=== PATIENT | female | born 1935 | race Two or more races ===

== ENCOUNTER 2020-01-16 05:31 | Inpatient (IN) | payer MEDICAID, MEDICARE ==
[~2020-01-16] VITALS: Ht 157.5 cm; Wt 69.1 kg
[2020-01-16] MEDS ORDERED: METO-558 PO (06:03)
[2020-01-16] MEDS ORDERED: METF-960 PO (06:03)
[2020-01-16] MEDS ORDERED: SITA100 PO (06:03)
[2020-01-16] MEDS ORDERED: AMIT75 PO (06:03)
[2020-01-16] MEDS ORDERED: LISI-662 PO (06:03)
[2020-01-16] MEDS ORDERED: MELA5TAB3 PO (06:03)
[2020-01-16 06:34] LABS: GLUCOSE,POINT OF CARE 226 MG/DL (70-110)
[2020-01-16 07:00] LABS: BASOPHILS % (AUTO) 0.5 % (0.0-2.0); EOSINOPHILS % (AUTO) 0.1 % (1.0-6.0); HEMATOCRIT 41.4 % (36-46); HEMOGLOBIN 13.3 g/dL (12.0-16.0); LYMPHOCYTES # (AUTO) 1.2 K/uL (1.0-4.8); LYMPHOCYTES % (AUTO) 9.2 % (22.0-44.0); MEAN CORPUSCULAR HEMOGLOBIN 28.6 pg (26.0-34.0); MEAN CORPUSCULAR HGB CONC 32.1 G/dL (31.0-37.0); MEAN CORPUSCULAR VOLUME 89 fL (80-100); MONOCYTES % (AUTO) 7.1 % (2.0-9.0); NEUTROPHILS # (AUTO) 11.2 K/uL (1.8-7.7); NEUTROPHILS % (AUTO) 83.1 % (40.0-70.0); PLATELET COUNT (AUTO) 309 K/uL (150-450); RED BLOOD CELL COUNT(AUTO) 4.64 MIL/uL (4.00-5.20); RED CELL DISTRIBUTION WIDTH 13.7 % (11.5-14.5)
[2020-01-16 07:16] LABS: AMPHET/METH SCREEN,URINE NEGATIVE (NEGATIVE); BARBITURATE SCREEN, URINE NEGATIVE (NEGATIVE); BENZODIAZEPINES SCREEN,URINE NEGATIVE (NEGATIVE); CANNABINOID SCREEN,URINE NEGATIVE (NEGATIVE); COCAINE SCREEN,URINE NEGATIVE (NEGATIVE); METHADONE SCREEN, URINE NEGATIVE (NEGATIVE); OPIATE SCREEN,URINE NEGATIVE (NEGATIVE)
[2020-01-16 07:24] LABS: ALANINE AMINOTRANSFERASE 16 U/L (12-78); ALBUMIN 4.5 g/dL (3.4-5.0); ALKALINE PHOSPHATASE 72 U/L (46-116); ANION GAP 10 mmol/L (8-16); ASPARTATE AMINOTRANSFERASE 14 U/L (15-37); BILIRUBIN,TOTAL 0.4 mg/dL (0.1-1.0); CALCIUM, TOTAL 9.5 mg/dL (8.8-10.5); CARBON DIOXIDE 32 mmol/L (22-29); CHLORIDE 92 mmol/L (98-107); CREATININE 0.72 mg/dL (0.60-1.30); FREE T4 (FREE THYROXINE) 0.97 ng/dL (0.76-1.46); GLUCOSE,RANDOM 218 mg/dL (70-110); SODIUM SERUM 134 mmol/L (136-145); THYROID STIMULATING HORMONE 4.83 uIU/mL (0.36-3.74); TOTAL PROTEIN, SERUM 8.3 g/dL (6.4-8.2); UREA NITROGEN, BLOOD 20 mg/dL (7-18)
[2020-01-16 07:25] LABS: PHENCYCLIDINE SCREEN,URINE NEGATIVE (NEGATIVE)
[2020-01-16 07:27] LABS: GLOMERULAR FILTR. RATE CALC > 60 mL/min (>60)
[2020-01-16 07:38] LABS: APPEARANCE,URINE CLEAR (CLEAR); BILIRUBIN,URINE NEGATIVE (NEGATIVE); GLUCOSE, URINE (UA) 250 mg/dL (NEGATIVE); KETONES,URINE TRACE mg/dL (NEGATIVE); LEUKOCYTE ESTERASE ,URINE MODERATE (NEGATIVE); NITRATE,URINE NEGATIVE (NEGATIVE); OCCULT BLOOD,URINE NEGATIVE (NEGATIVE); PROTEIN,URINE POS 1+ (NEGATIVE); UROBILINOGEN,URINE 0.2 mg/dL (<=1.0)
[2020-01-16] MEDS ORDERED: POTASSIUM CHLORIDE 20 MEQ ER TABLET PO ONE (07:45)
[2020-01-16] MEDS ORDERED: PROMETHAZINE HCL 25 MG TABLET PO ONE (07:45)
[2020-01-16] MEDS ORDERED: ONDANSETRON HCL 4 MG/2 ML VIAL IM ONE (08:30)
[2020-01-16 08:54] LABS: BACTERIA,URINE Few /HPF (None Seen); RBC,URINE 0-2 /HPF (0-2)
[2020-01-16 08:55] LABS: SQUAMOUS EPITHELIAL CELL,UR Few /LPF (None Seen); YEAST,URINE None Seen /HPF (None Seen)
[2020-01-16] MEDS ORDERED: CefTRIAXone 1 GM/DEXTROSE 50 ML IV ONE (09:30)
[2020-01-16] MEDS ORDERED: ONDANSETRON HCL 4 MG/2 ML VIAL IVP ONE (09:30)
[2020-01-16] MEDS ORDERED: SODIUM CHLORIDE 0.9% 1,000 ML IV ONE (09:30)
[2020-01-16] MEDS ORDERED: HydrALAZINE HCL 20 MG/ML VIAL IVP ONE (09:30)
[2020-01-16 09:40] LABS: LIPASE 173 U/L (73-393)
[2020-01-16] MEDS ORDERED: ACETAMINOPHEN 325 MG TABLET PO PRN (10:30)
[2020-01-16] MEDS ORDERED: 0.9% SODIUM CHLORIDE 10 ML SYRINGE IVP PRN (10:30)
[2020-01-16 12:35] VITALS: BP 151/112
[2020-01-16 16:15] VITALS: BP 160/77
[2020-01-16] MEDS ORDERED: ONDANSETRON HCL 4 MG/2 ML VIAL IVP PRN (16:30)
[2020-01-16] MEDS ORDERED: MORPHINE SULFATE 2 MG/ML SYRINGE IVP PRN (16:30)
[2020-01-16] MEDS ORDERED: ZOLPIDEM TARTRATE 5 MG TABLET PO PRN (16:30)
[2020-01-16] MEDS ORDERED: BISACODYL 10 MG RECTAL RECTAL SUPPOSITORY PR PRN (16:30)
[2020-01-16] MEDS ORDERED: HYDROCODONE/ACETAMINOPHEN 5-325 MG TABLET PO PRN (16:30)
[2020-01-16] MEDS ORDERED: MAGNESIUM HYDROXIDE SUSPENSION 30 ML UDCUP PO PRN (16:30)
[2020-01-16] MEDS: MetFORMIN HCL 500 MG TABLET PO SCH (18:00)
[2020-01-16 18:32] LABS: GLUCOMETER DEV NAME(LOC) 5S.2A; GLUCOSE,POINT OF CARE 151 MG/DL (70-110)
[2020-01-16] MEDS ORDERED: CloNIDine HCL 0.1 MG TABLET PO PRN (19:15)
[2020-01-16 19:20] VITALS: BP 174/73
[2020-01-16] MEDS: MELATONIN 5 MG TABLET PO SCH (20:28)
[2020-01-16] MEDS: DOCUSATE SODIUM 100 MG CAPSULE PO SCH (20:28)
[2020-01-16] MEDS: AMITRIPTYLINE HCL 50 MG TABLET PO SCH (20:29)
[2020-01-16 22:32] LABS: GLUCOMETER DEV NAME(LOC) 5N.2; GLUCOSE,POINT OF CARE 141 MG/DL (70-110)
[2020-01-16] MEDS: HEPARIN SODIUM,PORCINE 5,000 UNITS/ML VIAL SQ SCH (23:15)
[2020-01-17 00:04] VITALS: BP 132/72
[2020-01-17 04:56] VITALS: BP 112/51
[2020-01-17 06:40] LABS: GLUCOMETER DEV NAME(LOC) 5N.2; GLUCOSE,POINT OF CARE 165 MG/DL (70-110)
[2020-01-17 07:36] VITALS: BP 118/57
[2020-01-17 07:46] LABS: BASOPHILS % (AUTO) 0.6 % (0.0-2.0); EOSINOPHILS % (AUTO) 0.9 % (1.0-6.0); HEMATOCRIT 36.1 % (36-46); HEMOGLOBIN 12.1 g/dL (12.0-16.0); LYMPHOCYTES # (AUTO) 1.7 K/uL (1.0-4.8); LYMPHOCYTES % (AUTO) 21.4 % (22.0-44.0); MEAN CORPUSCULAR HEMOGLOBIN 29.7 pg (26.0-34.0); MEAN CORPUSCULAR HGB CONC 33.6 G/dL (31.0-37.0); MEAN CORPUSCULAR VOLUME 89 fL (80-100); MONOCYTES # (AUTO) 0.8 K/uL (0.1-1.0); MONOCYTES % (AUTO) 10.4 % (2.0-9.0); NEUTROPHILS # (AUTO) 5.1 K/uL (1.8-7.7); NEUTROPHILS % (AUTO) 66.7 % (40.0-70.0); PLATELET COUNT (AUTO) 262 K/uL (150-450); RED BLOOD CELL COUNT(AUTO) 4.08 MIL/uL (4.00-5.20)
[2020-01-17 08:00] LABS: ALANINE AMINOTRANSFERASE 15 U/L (12-78); ALBUMIN 3.5 g/dL (3.4-5.0); ALKALINE PHOSPHATASE 61 U/L (46-116); ANION GAP 12 mmol/L (8-16); ASPARTATE AMINOTRANSFERASE 6 U/L (15-37); BILIRUBIN,TOTAL 0.6 mg/dL (0.1-1.0); CALCIUM, TOTAL 8.8 mg/dL (8.8-10.5); CARBON DIOXIDE 25 mmol/L (22-29); CHLORIDE 96 mmol/L (98-107); CREATININE 0.77 mg/dL (0.60-1.30); GLOMERULAR FILTR. RATE CALC > 60 mL/min (>60); GLUCOSE,RANDOM 153 mg/dL (70-110); SODIUM SERUM 133 mmol/L (136-145); TOTAL PROTEIN, SERUM 6.9 g/dL (6.4-8.2); UREA NITROGEN, BLOOD 17 mg/dL (7-18)
[2020-01-17] MEDS: HEPARIN SODIUM,PORCINE 5,000 UNITS/ML VIAL SQ SCH ×2 (08:00→15:49)
[2020-01-17] MEDS: MetFORMIN HCL 500 MG TABLET PO SCH ×2 (08:00→17:51)
[2020-01-17] MEDS: DOCUSATE SODIUM 100 MG CAPSULE PO SCH ×2 (09:00→20:04)
[2020-01-17] MEDS: SitaGLIPtin PHOSPHATE 100 MG TABLET PO SCH (09:00)
[2020-01-17] MEDS: PANTOPRAZOLE SODIUM 40 MG DR TABLET PO SCH (09:01)
[2020-01-17] MEDS: METOPROLOL SUCCINATE 50 MG ER TABLET PO SCH (09:01)
[2020-01-17] MEDS: LISINOPRIL 20 MG TABLET PO SCH (09:01)
[2020-01-17] MEDS: CefTRIAXone 1 GM/DEXTROSE 50 ML IV SCH (09:03)
[2020-01-17] MEDS ORDERED: SODIUM CHLORIDE 0.9% 500 ML IV ONE (11:04)
[2020-01-17 11:39] VITALS: BP 133/70
[2020-01-17] MEDS ORDERED: POTASSIUM CHL 10 MEQ/WATER 50 ML IV PRN (12:15)
[2020-01-17] MEDS: ACETAMINOPHEN 325 MG TABLET PO PRN (14:10)
[2020-01-17] MEDS: POTASSIUM CHLORIDE 20 MEQ ER TABLET PO PRN ×2 (14:10→20:03)
[2020-01-17 14:26] LABS: GLUCOMETER DEV NAME(LOC) 5N.2; GLUCOSE,POINT OF CARE 138 MG/DL (70-110)
[2020-01-17 15:32] VITALS: BP_SYST 137; BP_SYST 144; BP_DIAS 65; BP_DIAS 71
[2020-01-17] MEDS: MELATONIN 5 MG TABLET PO SCH (20:04)
[2020-01-17] MEDS: AMITRIPTYLINE HCL 50 MG TABLET PO SCH (20:04)
[2020-01-17 20:19] VITALS: BP 138/57
[2020-01-17 23:35] LABS: GLUCOMETER DEV NAME(LOC) 5S.2A; GLUCOSE,POINT OF CARE 157 MG/DL (70-110)
[2020-01-17 23:36] LABS: GLUCOMETER DEV NAME(LOC) 5N.2; GLUCOSE,POINT OF CARE 133 MG/DL (70-110)
[2020-01-18 00:27] VITALS: BP 137/85
[2020-01-18] MEDS: ACETAMINOPHEN 325 MG TABLET PO PRN (03:28)
[2020-01-18 04:19] VITALS: BP 137/63
[2020-01-18 07:19] VITALS: BP 142/65
[2020-01-18] MEDS: MetFORMIN HCL 500 MG TABLET PO SCH (08:14)
[2020-01-18] MEDS: HEPARIN SODIUM,PORCINE 5,000 UNITS/ML VIAL SQ SCH ×2 (08:14)
[2020-01-18] MEDS: METOPROLOL SUCCINATE 50 MG ER TABLET PO SCH (08:14)
[2020-01-18] MEDS: LISINOPRIL 20 MG TABLET PO SCH (08:21)
[2020-01-18] MEDS: PANTOPRAZOLE SODIUM 40 MG DR TABLET PO SCH (08:21)
[2020-01-18] MEDS: SitaGLIPtin PHOSPHATE 100 MG TABLET PO SCH (08:22)
[2020-01-18] MEDS: DOCUSATE SODIUM 100 MG CAPSULE PO SCH (08:22)
[2020-01-18] MEDS: CefTRIAXone 1 GM/DEXTROSE 50 ML IV SCH (08:58)
[2020-01-18] MEDS ORDERED: CEPH-582 PO (09:51)
[2020-01-18 10:51] VITALS: BP 147/73
[2020-01-18 20:31] LABS: GLUCOMETER DEV NAME(LOC) 5S.2A; GLUCOSE,POINT OF CARE 163 MG/DL (70-110)
[2020-01-18 20:31] LABS: GLUCOMETER DEV NAME(LOC) 5S.2A; GLUCOSE,POINT OF CARE 160 MG/DL (70-110)
== END 2020-01-18 15:05 | disposition home or self-care (01) | DRG 689 ==
LOC: EMS 05:31 → 5S 11:42
PROVIDERS: ADMIT Internal Medicine; ATTEND Internal Medicine
DX: N39.0 Urinary tract infection, site not specified (principal); G93.41 Metabolic encephalopathy; E11.9 Type 2 diabetes mellitus without complications; E87.6 Hypokalemia; I10 Essential (primary) hypertension; Z88.7 Allergy status to serum and vaccine; Z88.8 Allergy status to other drugs, medicaments and biological substances; M48.00 Spinal stenosis, site unspecified; Z90.49 Acquired absence of other specified parts of digestive tract; F29 Unspecified psychosis not due to a substance or known physiological condition
CPT/HCPCS: 70450; 74022; 84132; 84439; 84443; 87086; 93005; G0480; J0360; J0696; J1644; J2405; J7030; J7040